=== PATIENT | male | born 1995 | race African-American/Black ===

== ENCOUNTER 2021-07-01 23:53 | Emergency (ER) | payer SELFPAY ==
[~2021-07-01] VITALS: Ht 177.8 cm; Wt 99.8 kg
[2021-07-02 00:06] VITALS: BP_SYST 128
--- NOTE | 2021-07-02 00:34 | NUR ---
pt has been having a sore throat for 2 days and no fever noted. partner was ill at home aslo. no other issues noted
--- NOTE | 2021-07-02 00:40 | NUR ---
ER at bedside examining patient.
[2021-07-02] MEDS ORDERED: DEXAMETHASONE SOD PHOSPHATE 10 MG/ML VIAL IM ONE (01:00)
[2021-07-02] MEDS ORDERED: PENICILLIN G BENZATHINE 1.2 MMU/2 ML SYR IM ONE (01:00)
[2021-07-02] MEDS ORDERED: DEXAMETHASONE SOD PHOSPHATE 10 MG/ML VIAL ONE (01:07)
[2021-07-02] MEDS ORDERED: NACL 0.9% 1,000 ML IV ONE (03:00)
[2021-07-02] MEDS ORDERED: PRED20TA PO (03:01)
--- NOTE | 2021-07-02 03:01 | NUR ---
iv started in rac 20g and 1liter bolus of ns given
[2021-07-02 04:00] VITALS: BP_SYST 128
--- NOTE | 2021-07-02 04:00 | NUR ---
Patient given written and verbal discharge instructions and verbalizes understanding. ER MD discussed with patient the results and treatment provided. Patient in stable condition. ID arm band removed. IV catheter removed intact and dressing applied, no active bleeding. Rx of PREDNISONE given. Patient educated on pain management and to follow up with PMD. Pain Scale 0/10. Opportunity for questions provided and answered. Medication side effect fact sheet provided.
== END 2021-07-02 04:00 | disposition home or self-care (01) ==
LOC: SED 23:53
DX: U07.1 COVID-19 (principal); Z79.899 Other long term (current) drug therapy
CPT/HCPCS: 36415; 86403; 87081; 87426; 96360; 96372; 99284; J0561; J1100; J7030